=== PATIENT | female | born 1995 | race Caucasian/White ===

== ENCOUNTER 2021-03-02 23:21 | Emergency (ER) | payer OTHER, MEDICAID ==
[~2021-03-02] VITALS: Ht 172.7 cm; Wt 70.3 kg
[~2021-03-02 23:21] MED LIST: AMOXICILLIN875 MG PO; BACTRIM DS TAB1 EACH PO; LOW-OGESTREL1 EACH PO; NAPROSYN500 MG PO; NOHOMEMEDICATIONS; ONDANSETRON HCL4 M2 PO; PRENATA CHEWAB1 EACH PO; TRINATE TABLET1 TAB PO; ZOFRAN4 MG PO; ZPAK PO
[2021-03-03 00:09] LABS: URINE BILIRUBIN NEGATIVE (Negative); URINE BLOOD NEGATIVE (Negative); URINE CLARITY CLEAR; URINE COLOR YELLOW; URINE GLUCOSE-RANDOM NEGATIVE (Negative); URINE KETONES TRACE (Negative); URINE LEUKOCYTES-REFLEX NEGATIVE (Negative); URINE NITRITE-REFLEX NEGATIVE (Negative); URINE PROTEIN TRACE (Negative); URINE SPECIFIC GRAVITY 1.025 (1.005-1.030); URINE UROBILINOGEN 0.2 E.U./dl (0.2-1.0)
[2021-03-03 00:15] LABS: HEMATOCRIT 36.8 % (37.0-47.0); HEMOGLOBIN 12.1 gm/dL (12.0-15.0); MCH 26.7 pg (26.0-34.0); MCHC 32.9 g/dL (28.0-37.0); MCV 80.9 fL (80.0-100.0); MPV 7.4 fl. (7.2-11.1); RBC 4.55 mil/uL (4.20-5.00); RDW-CV 15.5 % (10.5-14.5); WBC 5.5 thou/uL (4.0-11.0)
[2021-03-03 00:23] LABS: CALCIUM 9.4 mg/dL (8.5-10.1); CREATININE 0.8 mg/dL (0.6-1.3); POTASSIUM 3.8 mmol/L (3.5-5.1)
[2021-03-03 03:05] VITALS: BP 127/79
== END 2021-03-03 03:05 | disposition home or self-care (01) ==
LOC: M.ERS 23:21
PROVIDERS: Personal Emergency Response Attendant
DX: G43.909 Migraine, unspecified, not intractable, without status migrainosus (principal); F17.210 Nicotine dependence, cigarettes, uncomplicated; Z79.899 Other long term (current) drug therapy

== ENCOUNTER 2021-03-04 19:41 | Emergency (ER) | payer OTHER, MEDICAID ==
[~2021-03-04] VITALS: Ht 172.7 cm; Wt 70.3 kg
[2021-03-04 21:09] VITALS: BP 133/82
== END 2021-03-04 21:10 | disposition home or self-care (01) ==
LOC: M.ERS 19:41
DX: G43.909 Migraine, unspecified, not intractable, without status migrainosus (principal); F17.210 Nicotine dependence, cigarettes, uncomplicated; Z88.8 Allergy status to other drugs, medicaments and biological substances